=== PATIENT | female | born 1925 | race Caucasian/White ===

== ENCOUNTER → 2017-06-23 | Outpatient (CLI) | payer MEDICARE, BC ==
[~2017-06-23] MED LIST: FERROUS SU325 MG/TAB PO; FOLIC ACID PO; LEVOTHYROXINE0.1 MG PO; PROZAC 20MG20 MG PO; VITAMIN C500 MG PO
== END ==
LOC: ZCOL.LAB 16:15
DX: H92.10 Otorrhea, unspecified ear (principal)